=== PATIENT | male | born 1975 | race Caucasian/White ===

== ENCOUNTER 2018-01-15 09:51 | Emergency (ER) | END 2018-01-15 12:45 | disposition home or self-care (01) ==

== ENCOUNTER 2018-11-07 12:08 | Emergency (ER) | payer MEDICAID ==
[~2018-11-07] VITALS: Ht 160 cm; Wt 62.1 kg
[2018-11-07 12:31] VITALS: BP 144/82; PULSE 77; RESP 20; Ht 160 cm; Wt 62.1 kg
[2018-11-07] MEDS ORDERED: IBUPROFEN 600 MG TAB PO ONE (14:30)
[2018-11-07] MEDS ORDERED: IBUP-1542 PO (15:27)
[2018-11-07] MEDS ORDERED: CYCL10TA7 PO (15:27)
--- NOTE | 2018-11-07 18:10 | ERD ---
ER Documentation Chief Complaint Chief Complaint Complains of back pain x 3 days HPI 43-year-old male patient with no significant past medical history presents to ED complaining of left-sided flank pain that started 1 week ago. Denies any heavy lifting or dysuria or hematuria. Patient reports that when he bends forward, it worsens the pain. Patient rates his pain an 8 out of 10. States that when he takes Advil, it helps with his pain. Denies any chest pain or shortness of breath, nausea, vomiting, abdominal pain. ROS All systems reviewed and are negative except as per history of present illness. Medications Home Meds Active Scripts Ibuprofen* (Motrin*) 600 Mg Tab, 600 MG PO Q6, #30 TAB Prov:LYUBOV MARROQUIN PA-C 11/07/18 Cyclobenzaprine Hcl* (Cyclobenzaprine Hcl*) 10 Mg Tablet, 10 MG PO TID, #15 TAB Prov:LYUBOV MARROQUIN PA-C 11/07/18 Allergies Allergies: Coded Allergies: No Known Allergy (Unverified , 01/15/18) PMhx/Soc Medical and Surgical Hx: pt denies Medical Hx, pt denies Surgical Hx Hx Alcohol Use: No Hx Substance Use: No Hx Tobacco Use: No FmHx Family History: No diabetes, No coronary disease Physical Exam Vitals Vital Signs Date Temp Pulse Resp B/P (MAP) Pulse Ox O2 O2 Flow FiO2 Time Delivery Rate 11/07/18 37.1 14:24 11/07/18 98.7 77 20 144/82 99 12:31 (102) Physical Exam Const: Tax-hrv-[id number], well-nourished. In no acute distress. Head: Atraumatic, normocephalic Eyes: Normal Conjunctiva without injection. No purulent discharge. ENT: Normal external ear, nose. Moist oropharynx without tonsillar exudates. Non-erythematous pharynx. Uvula midline. No drooling. No trismus. Neck: No cervical midline tenderness. Full range of motion. No meningismus. No cervical lymphadenopathy. No JVD. Resp: Clear to auscultation bilaterally. No wheezing, rhonchi, rales, or crackles. No accessory muscle use. No retractions. Cardio: Regular rate and rhythm. No murmurs, rubs or gallops. Abd: Soft, nontender, non distended. Normal bowel sounds. No palpable masses. No rebound tenderness. No guarding. Negative McBurney's point. Negative psoas sign. Negative obturator sign. Skin: No petechiae or rashes Back: No midline tenderness. No CVA tenderness. Ext: No cyanosis, or edema. Neur: Awake and alert. Normal gait. Normal coordination. Psych: Normal Mood and Affect Results 24 hrs Current Medications Medications Dose Sig/Ruben Start Time Status Last (Trade) Ordered Route PRN Stop Time Admin Dose Reason Admin Ibuprofen 600 mg ONCE ONCE 11/07/18 DC 11/07/18 (Motrin) PO 14:30 14:24 11/07/18 14:32 Procedures/MDM 43-year-old male patient with no significant past medical history presents to ED complaining of left sided back pain. Patient is afebrile and nontoxic- appearing. Patient does have tenderness palpation of the left musculoskeletal area where the lumbar muscles are located. Patient's pain is likely secondary to musculoskeletal pain since patient reports that it feels like muscle stiffness. Patient is ambulating here in the ED without difficulty. Denies saddle anesthesia, numbness or tingling, urine or bowel incontinence, weakness. Low suspicion for cauda equina syndrome, cord compression, nephrolithiasis, aortic aneurysm, aortic dissection, epidural abscess, spinal hematoma, lillian gnancy, pyelonephritis, or other emergent conditions. Diagnosis: Back pain Discharge medications: Ibuprofen, Cyclobenzaprine Follow up with primary care physician in 1-2 days. Instructed patient to return to the ED sooner for any worsening symptoms. Patient's questions were answered. Patient is hemodynamically stable. Patient understood and agreed with discharge plan. Patient discharged stable. Disclaimer: Inadvertent spelling and grammatical errors are likely due to EHR/dictation software use and do not reflect on the overall quality of patient care. Also, please note that the electronic time recorded on this note does not necessarily reflect the actual time of the patient encounter. Departure Diagnosis: Primary Impression: Back pain Back pain location: low back pain Chronicity: unspecified Back pain laterality: unspecified Sciatica presence: unspecified whether sciatica present Qualified Codes: M54.5 - Low back pain Condition: Stable Patient Instructions: Back Pain (Acute Or Chronic) Referrals: COMM[facility]ITY CLIN[facility] YOU HAVE RECEIVED A MEDICAL SCREENING EXAM AND THE RESULTS INDICATE THAT YOU DO NOT HAVE A CONDITION THAT REQUIRES URGENT TREATMENT IN THE EMERGENCY DEPARTMENT. FURTHER EVALUATION AND TREATMENT OF YOUR CONDITION CAN WAIT UNTIL YOU ARE SEEN IN YOUR DOCTORS OFFICE WITHIN THE NEXT 1-2 DAYS. IT IS YOUR RESPONSIBILITY TO MAKE AN APPOINTMENT FOR FOLOW-UP CARE. IF YOU HAVE A PRIMARY DOCTOR --you should call your primary doctor and schedule an appointment IF YOU DO NOT HAVE A PRIMARY DOCTOR YOU CAN CALL OUR PHYSICIAN REFERRAL HOTLINE AT IF YOU CAN NOT AFFORD TO SEE A PHYSICIAN YOU CAN CHOSE FROM THE FOLLOWING [facility] [address] [facility] [address] [facility]. [facility] [address] [facility] [address] [facility] [facility] [address] [facility]. [facility] [address] [facility]. [facility] YOU HAVE RECEIVED A MEDICAL SCREENING EXAM AND THE RESULTS INDICATE THAT YOU DO NOT HAVE A CONDITION THAT REQUIRES URGENT TREATMENT IN THE EMERGENCY DEPARTMENT. FURTHER EVALUATION AND TREATMENT OF YOUR CONDITION CAN WAIT UNTIL YOU ARE SEEN IN YOUR DOCTORS OFFICE WITHIN THE NEXT 1-2 DAYS. IT IS YOUR RESPONSIBILITY TO MAKE AN APPOINTMENT FOR FOLOW-UP CARE. IF YOU HAVE A PRIMARY DOCTOR --you should call your primary doctor and schedule and appointment IF YOU DO NOT HAVE A PRIMARY DOCTOR YOU CAN CALL OUR PHYSICIAN REFERRAL HOTLINE AT . IF YOU CAN NOT AFFORD TO SEE A PHYSICIAN YOU CAN CHOSE FROM THE FOLLOWING [facility] INSTITUTIONS: [facility] [address] [place] [address] [facility] [address] [place] [address] [facility] [address] [place] [address] [facility] URGENT CARE/SPECIALTIES Additional Instructions: Llame al doctor MAANA y toni kirsty KEREN PARA DENTRO DE 2-3 LEE.Dgale a la secretaria que nosotros le instruimos hacer esta keren.Avise o llame si sands condicin se empeora antes de la keren. Regresa aqui si peor o no mejor. LYUBOV MARROQUIN PA-C Nov 07, 2018 18:10
== END 2018-11-07 15:40 | disposition home or self-care (01) ==
LOC: FTE 12:08
DX: M54.5 Low back pain (principal)
CPT/HCPCS: 72100; Z7610